=== PATIENT | female | born 1990 | race Caucasian/White ===

== ENCOUNTER 2016-09-06 23:51 | Emergency (ER) | payer OTHER ==
[~2016-09-06] VITALS: Ht 160 cm; Wt 98.2 kg
[2016-09-07 00:49] LABS: HEMATOCRIT 41.3 % (36.0-46.0); MCH 27.8 PG (29.0-34.0); MCHC 34.1 G/DL (30.0-36.0); MCV 81.3 FL (83-99); MEAN PLAT.VOLUME 10.5 uM^3 (9.5-12.4); PLATELET COUNT 312 K/uL (156-360); RBC DIS.WIDTH-CV 12.9 % (11.8-14.6); RBC DIS.WIDTH-SD 37.4 % (39-53); RED BLOOD COUNT 5.08 M/uL (3.80-5.20); WHITE BLOOD COUNT 8.7 K/uL (4.1-10.2)
[2016-09-07 00:59] LABS: CHLORIDE 108 mEq/L (99-109); POTASSIUM 3.9 mEq/L (3.7-5.4); SODIUM 141 mEq/L (136-147)
[2016-09-07 01:00] LABS: GLUCOSE 125 mg/dL (70-99)
[2016-09-07 01:02] LABS: ANION GAP 12 MEQ/L (2-14)
[2016-09-07 01:04] LABS: GFR ESTIMATE (CALCULATED) > 59 mL/min/
[2016-09-07 01:05] LABS: UREA NITROGEN (BUN) 16 mg/dL (9-23)
[2016-09-07 01:06] LABS: D-DIMER ELISA 0.26 mg/L FEU (< 0.57)
[2016-09-07 01:11] LABS: TROP-I INTERPRETATION NEGATIVE; TROPONIN-I < 0.01 ng/mL (0.0-0.30)
[2016-09-07 01:13] LABS: QUANTITATIVE HCG < 4.0 MIU/ML
[2016-09-07] MEDS ORDERED: ATIVAN0.5 MG PO (01:51)
[2016-09-07 02:14] VITALS: BP 135/91
== END 2016-09-07 02:15 | disposition home or self-care (01) ==
LOC: EME 23:51
DX: R07.89 Other chest pain (principal); F41.9 Anxiety disorder, unspecified
CPT/HCPCS: 71020; 80048; 84484; 84702; 85027; 85379; 93005; 99281; 99284